=== PATIENT | male | born 1940 | race Caucasian/White ===

== ENCOUNTER 2018-05-11 10:23 | Emergency (ER) | payer MEDICARE, SELFPAY ==
[2018-05-11 10:24] VITALS: BP 158/72; PULSE 73; RESP 14; TEMP 36.7; O2SAT 98; BMI 21.1
--- NOTE | 2018-05-11 10:52 | ED.GIBLEED ---
HPI - GI Bleed General Chief complaint: GI Bleed Stated complaint: BRB per rectum, Hemroids. Time Seen by Provider: 05/11/18 10:27 Source: patient Mode of arrival: EMS Limitations: no limitations History of Present Illness HPI Narrative: Patient is a 77-year-old male not on anticoagulation here for evaluation of bright red blood per rectum. Patient states that he has had a history of hemorrhoids in the past. He states that he has been told that he has ?internal hemorrhoids? he states that he has had to ?push ?that back up in. Has never had any bleeding before secondary to the hemorrhoids. Patient states that yesterday he had a somewhat hard bowel movement and then he states that this morning he felt like he had the urgency to go and when he went to the bathroom he did have to push and then had bleeding. He states the bleeding continues. He states that he feels like there is something near his rectum. No abdominal pain. Was brought in by EMS for evaluation. Related Data Home Medications Medication Instructions Recorded Confirmed gabapentin 300 mg PO BEDTIME 05/11/18 05/11/18 insulin glargine [Lantus U-100 10 unit SUBCUT BEDTIME 05/11/18 05/11/18 Insulin] metformin 1,000 mg PO BID 05/11/18 05/11/18 pioglitazone [Actos] 45 mg PO DAILY 05/11/18 05/11/18 ramipril 10 mg PO DAILY 05/11/18 05/11/18 Previous Rx's Medication Instructions Recorded docusate sodium [Colace] 100 mg PO BID PRN #14 cap 05/11/18 Allergies Allergy/AdvReac Type Severity Reaction Status Date / Time codeine [CODEINE] Allergy Unknown VOMITING Verified 05/11/18 10:29 oxycodone [OXYCODONE] Allergy Unknown VOMITING Verified 05/11/18 10:29 Review of Systems Constitutional Denies fatigue and Denies fever(s) ENT Ears, Nose, Mouth, and Throat: Denies dysphagia and Denies vertigo Cardiovascular Denies chest pain and Denies dyspnea Respiratory Denies dyspnea Gastrointestinal Gastrointestinal: Denies abdominal pain, Reports change in bowel habits, Reports constipation, Denies dysphagia, Denies diarrhea, Denies nausea and Denies vomiting Comments: Bright red blood per rectum Genitourinary Denies dysuria Integumentary/Breasts Denies lesions and Denies rash Neurologic Denies behavioral changes and Denies vertigo Psychiatric Denies behavioral changes Endocrine Denies fatigue Hematologic/Lymphatic Denies easy bleeding and Denies easy bruising PFSH Medical History Hypertension (Acute) Insulin dependent diabetes mellitus (Acute) Surgical History No pertinent past surgical history (Acute) Exam Initial Vital Signs Initial Vital Signs: Vital Signs Temperature 98.1 F 05/11/18 10:24 Pulse Rate 73 05/11/18 10:24 Respiratory Rate 14 05/11/18 10:24 Blood Pressure 158/72 H 05/11/18 10:24 Pulse Oximetry 98 05/11/18 10:24 Const General: cooperative, healthy appearing, comfortable, well developed, well groomed and No acute distress Orientation: alert, awake and oriented x3 GI Inspection: normal to inspection and abdominal wall ecchymosis Rectal Exam: hemorrhoids and other (Patient with a thrombosed prolapsed internal hemorrhoid) Skin Lesions: no lesions Rashes: no rashes Neuro General: alert, awake and oriented x3 Psych Appearance: grossly normal and well kempt Course Vital Signs - 8 hr 05/11/18 10:24 Temperature 98.1 F Pulse Rate 73 Respiratory Rate 14 Blood Pressure 158/72 H Pulse Oximetry 98 MDM - GI Bleed MDM Narrative Medical decision making narrative: Patient with a soft abdomen. His thrombosed prolapsed internal hemorrhoid was easily reduced here in the emergency department. Patient tolerated this very well. We did discuss his symptoms. We did discuss return precautions. No indication for emergent surgical intervention. Patient expressed understanding and agreement with plan. Discharge Plan Departure Patient Disposition: Home Clinical Impression: Internal hemorrhoid Instructions: Hemorrhoids (Alternative Therapy), DI for Hemorrhoids Activity Restrictions/Additional Instructions: Recommend that you stay hydrated. I also recommend that you start a fiber supplementation. Also recommend that you purchase preparation H and use it a like we discussed. The goal is for you to have soft bowel movements and avoiding constipation and diarrhea. Reduce the hemorrhoid like we discussed and if you are unable to reduce it or you develop new symptoms return to the emergency department. Prescriptions: New docusate sodium [Colace] 100 mg capsule 100 mg PO BID PRN (Reason: constipation) Qty: 14 RF: 0 No Action insulin glargine [Lantus U-100 Insulin] 100 unit/mL Solution 10 unit SUBCUT BEDTIME RF: 0 pioglitazone [Actos] 45 mg Tablet 45 mg PO DAILY RF: 0 metformin 1,000 mg Tablet 1,000 mg PO BID RF: 0 gabapentin 300 mg Capsule 300 mg PO BEDTIME RF: 0 ramipril 10 mg Capsule 10 mg PO DAILY RF: 0
[2018-05-11 11:29] VITALS: BP 115/59; PULSE 79; RESP 16; O2SAT 100
== END 2018-05-11 11:32 | disposition home or self-care (01) ==
PROVIDERS: Emergency Provider Emergency Medicine
DX: K64.8 Other hemorrhoids (principal)
CPT/HCPCS: 99282